=== PATIENT | female | born 1970 | race Caucasian/White ===

== ENCOUNTER 2021-03-19 22:01 | Emergency (ER) | payer OTHER ==
[2021-03-19] MEDS ORDERED: Acetaminophen/HYDROcodone 325-5 MG Tab PO ONE (22:34)
--- NOTE | 2021-03-19 23:26 | EDM.PDOC ---
ED HPI GENERAL MEDICAL PROBLEM - General Chief Complaint: Chest Pain Stated Complaint: LEFT SIDE PAIN SOB FALL ON SUNDAY Time Seen by Provider: 03/19/21 22:20 Source of Information: Reports: Patient - History of Present Illness INITIAL COMMENTS - FREE TEXT/NARRATIVE: 50 yr old female tripped walking over curb several days ago, L chest pain is getting worse, painful to move, breath, tylenol not helping much. Left Chest Pain Score (Numeric/FACES): 9 - Related Data Allergies Allergy/AdvReac Type Severity Reaction Status Date / Time morphine Allergy Nausea and Verified 03/19/21 22:13 Vomiting Home Meds: Home Meds Escitalopram [Lexapro] 20 mg PO DAILY 03/19/21 [History] Hydrocodone/Acetaminophen [Hydrocodone-Acetamin 5-325 mg] 1 each PO Q6HR PRN #14 tab 03/19/21 [Rx] Orphenadrine [Norflex] 100 mg PO DAILY 03/19/21 [History] Pramipexole [Mirapex] 1 mg PO DAILY 03/19/21 [History] Past Medical History [employer] History: Reports: Musculoskeletal History: Reports: Other (See Below) Other Musculoskeletal History: left shoulder, left middle finger surgery Psychiatric History: Reports: Anxiety Social & Family History - Tobacco Use Tobacco Use Status *Q: Current Every Day Tobacco User Years of Tobacco use: 30 Packs/Tins Daily: 1 - Caffeine Use Caffeine Use: Reports: Coffee, Energy Drinks, Soda - Recreational Drug Use Recreational Drug Use: No ED ROS GENERAL - Review of Systems Review Of Systems: See Below Constitutional: Denies: Fever, Chills, Diaphoresis HEENT: Reports: No Symptoms Respiratory: Reports: Pleuritic Chest Pain. Denies: Shortness of Breath Cardiovascular: Reports: Chest Pain GI/Abdominal: Denies: Abdominal Pain, Nausea, Vomiting Musculoskeletal: Denies: Shoulder Pain, Arm Pain, Back Pain Skin: Reports: No Symptoms Neurological: Reports: No Symptoms ED EXAM, GENERAL - Physical Exam Exam: See Below General Appearance: Alert, Moderate Distress Head: Atraumatic Neck: Supple Respiratory/Chest: No Respiratory Distress, Lungs Clear, Normal Breath Sounds, Other (tender L ant. lat lower chest, no bruising, swelling visible, no crepitus). No: Rhonchi, Wheezing Cardiovascular: Regular Rate, Rhythm GI/Abdominal: Soft, Non-Tender Back Exam: No: CVA Tenderness (L), CVA Tenderness (R) Extremities: Normal Inspection, Normal Range of Motion Neurological: Alert, Oriented, No Motor/Sensory Deficits Skin Exam: Warm, Dry, Normal Color Course - Vital Signs Last Recorded V/S: Last Vital Signs Temp 97.7 F 03/19/21 22:11 Pulse 96 03/19/21 22:11 Resp 20 03/19/21 22:11 BP 139/90 03/19/21 22:11 Pulse Ox 98 03/19/21 22:11 - Orders/Labs/Meds Orders: Active Orders 24 hr Category Date Time Status Ribs 2V w Chest Lt [CR] Stat Exams 03/19/21 22:35 Taken Meds: Medications Discontinued Medications Generic Name Dose Route Start Last Admin Trade Name Freq PRN Reason Stop Dose Admin Hydrocodone Bitart/Acetaminophen 1 tab 03/19/21 22:34 03/19/21 22:40 Acetaminophen/Hydrocodone 325-5 Mg Tab PO 03/19/21 22:35 1 tab ONETIME ONE Administration - Re-Assessments/Exams Free Text/Narrative Re-Assessment/Exam: 03/20/21 05:49 CXR normal, no visible rib fx Departure - Departure Time of Disposition: 23:23 Disposition: Home, Self-Care 01 Condition: Fair Clinical Impression: Fall, Chest wall contusion - Discharge Information Prescriptions: Hydrocodone/Acetaminophen [Hydrocodone-Acetamin 5-325 mg] 1 each PO Q6HR PRN #14 tab PRN Reason: Pain Instructions: Contusion, [id number] Referrals: PCP,None [Primary Care Provider] - Forms: ED Department Discharge Additional Instructions: Alternate ice and heat as needed. Alternate tylenol and ibuprofen as needed. Hydrocodone if needed for severe pain. Do not take tylenol and hydrocodone at the same time. Follow up clinic if not much better within 10 to 14 days as expected. Sepsis Event Note (ED) - Evaluation Sepsis Screening Result: No Definite Risk - Focused Exam Vital Signs: Vital Signs Temp Pulse Resp BP Pulse Ox 03/19/21 22:11 97.7 F 96 20 139/90 98 - My Orders Last 24 Hours: My Active Orders 03/19/21 22:35 Ribs 2V w Chest Lt [CR] Stat - Assessment/Plan Last 24 Hours: My Active Orders 03/19/21 22:35 Ribs 2V w Chest Lt [CR] Stat
--- NOTE | 2021-03-20 12:29 | CR ---
Chest and left ribs: Frontal view of the chest was obtained as well as 4 additional views of the left ribs. Comparison: No prior studies available. Heart size and mediastinum are normal. Minimal atelectasis is seen within the left lung base. Lungs otherwise are clear. Deformity of the left acromioclavicular joint is seen most likely due to prior surgery or old injury. I do not see a discrete left-sided rib fracture. Nondisplaced fractures could be missed. Impression: 1. Slight left basilar atelectasis. 2. Deformity of the left acromioclavicular joint either due to old injury or prior surgery. 3. No definite acute left rib fracture is seen. Please note that nondisplaced fracture could easily be missed. Diagnostic code #2
== END 2021-03-19 23:44 | disposition home or self-care (01) ==
LOC: JD.ED 22:01
DX: S20.212A Contusion of left front wall of thorax, initial encounter (principal); Z88.5 Allergy status to narcotic agent; Z79.899 Other long term (current) drug therapy; Z72.0 Tobacco use; W01.0XXA Fall on same level from slipping, tripping and stumbling without subsequent striking against object, initial encounter
CPT/HCPCS: 71101; 99283; A9270